=== PATIENT | male | born 2000 | race African-American/Black ===

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

== ENCOUNTER 2021-01-02 12:50 | Emergency (ER) | payer MEDICAID ==
[~2021-01-02] VITALS: Ht 185 cm; Wt 97.4 kg
[~2021-01-02 12:50] MED LIST: SULF1TAB38 PO
--- NOTE | 2021-01-02 13:37 | ED General ---
General Chief Complaint: Allergic Reaction Stated Complaint: FACIAL SWELLING Nursing Triage Note: PT COMPLAINS OF SNEEZING, SWOLLEN EYES, SEASONAL ALLERGIES X2 WEEKS. HAS NOT TAKEN ANY MEDICATIONS FOR SYMPTOMS. Source of Information: Patient, Family Exam Limitations: Other (Autism) History of Present Illness Date Seen by Provider: Jan 02, 2021 Time Seen by Provider: 13:25 Initial Comments This 20-year-old young man is brought to the emergency room by his grandmother for reasons of eye itching and swelling. He also is exhibiting sneezing. She states he tends to go through this each fall. He has had no fever. Eyes are not painful but appear itchy. They swell after he starts rubbing them. He is autistic so his grandmother gives most of the history. He has not taken any allergy medications. She also reports some minor bumps around the distribution of his facial hair. Allergies and Home Medications Allergies Coded Allergies: diphenhydramine (Verified Allergy, Unknown, 02/23/20) Patient Home Medication List Home Medication List Reviewed: Yes Fluticasone Propionate (Flonase Allergy Relief) 9.9 Ml [place].susp, 2 SPRAY NSEACH DAILY Prescribed by: DEVORA NICOLE on 01/02/21 1339 Loratadine (Loratadine) 10 Mg Tablet, 10 MG PO DAILY Prescribed by: DEVORA NICOLE on 01/02/21 1339 Sulfamethoxazole/Trimethoprim (Bactrim Ds Tablet) 1 Each Tablet, 1 EACH PO BID Prescribed by: DEMIAN LOPEZ on 02/23/201928 Review of Systems Review of Systems Constitutional: no symptoms reported EENTM: see HPI Respiratory: no symptoms reported Cardiovascular: no symptoms reported Gastrointestinal: no symptoms reported Genitourinary: no symptoms reported Musculoskeletal: no symptoms reported Skin: no symptoms reported Psychiatric/Neurological: No Symptoms Reported Hematologic/Lymphatic: No Symptoms Reported Immunological/Allergic: see HPI Past Zsqtiwe-Buzdes-Xlmmep Hx Patient Social History Tobacco Use?: No Smoking Status: Never a Smoker Substance use?: No Alcohol Use?: No Pt feels they are or have been: No Immunizations Up To Date First/Initial COVID19 Vaccinat: NA Seasonal Allergies Seasonal Allergies: Yes (Late summer and fall) Past Medical History Surgeries: No Respiratory: No Cardiac: No Neurological: Yes Developmental Disorder ("Autism") Genitourinary: No Gastrointestinal: No Musculoskeletal: No Endocrine: No HEENT: No Cancer: No Psychosocial: Yes (AUTISM) Integumentary: No Blood Disorders: No Physical Exam Vital Signs Vital Signs - First Documented 01/02/21 12:58 Temp 37.2 Pulse 110 Resp 16 B/P (MAP) 130/73 (92) Pulse Ox 97 O2 Delivery Room Air Capillary Refill : Less Than 3 Seconds Height, Weight, BMI Height: '" Weight: lbs. oz. kg; 28.00 BMI Method: General Appearance: No Apparent Distress, WD/WN HEENT: PERRL/EOMI, Pharynx Normal, Other (TMs are retracted and slightly erythematous. Bilateral conjunctiva mildly erythematous and swollen. Minor periorbital swelling around the eyelids.) Neck: Normal Inspection Respiratory: Lungs Clear, Normal Breath Sounds, No Accessory Muscle Use Cardiovascular: Regular Rate, Rhythm, No Edema, No Murmur Neurologic/Psychiatric: Alert, Normal Mood/Affect, family living educator II-XII Norm as Tested Skin: Normal Color, Warm/Dry, Other (Mild periorbital swelling. Minor bumps on the shaved surfaces of the face that are not inflamed.) Progress/Results/Core Measures Suspected Sepsis SIRS Temperature: Pulse: 110 Respiratory Rate: 16 Blood Pressure 130 /73 Mean: 92 Results/Orders Vital Signs/I&O 01/02/21 12:58 Temp 37.2 Pulse 110 Resp 16 B/P (MAP) 130/73 (92) Pulse Ox 97 O2 Delivery Room Air Capillary Refill : Less Than 3 Seconds Blood Pressure Mean: 92 Progress Note : Progress Note We discussed treatment of seasonal allergies. Patient is allergic to Benadryl but can take other antihistamines according to his mother. See discharge instructions and prescriptions. Departure Impression Primary Impression: Allergic rhinitis Qualified Codes: J30.1 - Allergic rhinitis due to pollen Additional Impressions: Allergic conjunctivitis Qualified Codes: H10.13 - Acute atopic conjunctivitis, bilateral Eustachian tube dysfunction Qualified Codes: H69.83 - Other specified disorders of eustachian tube, bilateral Disposition: 01 HOME, SELF-CARE Condition: Stable Departure-Patient Inst. Decision time for Depature: 13:35 Referrals: ALVERTO BELTRÁN MD (PCP/Family) Primary Care Physician Patient Instructions: Seasonal Allergies (DC) Add. Discharge Instructions: Use a nondrowsy allergy medication in the mornings such as Zyrtec (cetirizine), Claritin (loratadine), etc. Use the steroid nasal spray (fluticasone or Flonase) 2 sprays in each side of the nose daily. Follow-up with your primary care provider next week if these measures are not sufficient to improve the symptoms. I recommend that you continue these medications through the allergy seasons, at least until the first hard freeze. Call with questions or concerns. Return to the ER if there are worsening symptoms All discharge instructions reviewed with patient and/or family. Voiced understanding. Scripts Fluticasone Propionate (Flonase Allergy Relief) 9.9 Ml [place].susp 2 SPRAY NSEACH DAILY, #1 EACH 2 Refills 2 SPRAYS PER NOSTRIL DAILY X 2 DAYS THEN 1 SPRAY DAILY Prov: DEVORA BUCK MD 01/02/21 Loratadine (Loratadine) 10 Mg Tablet 10 MG PO DAILY, #30 TAB 2 Refills Prov: DEVORA BUCK MD 01/02/21 Copy Copies To 1: ALVERTO BELTRÁN MD, JOSHUA T MD Jan 02, 2021 13:37
[2021-01-02] MEDS ORDERED: LORA10TA7 PO (13:39)
[2021-01-02] MEDS ORDERED: FLUT9.9S NSEACH (13:39)
[2021-01-02 13:44] VITALS: BP 121/75
== END 2021-01-02 13:50 | disposition home or self-care (01) ==
LOC: EDUNIT# 12:50 → ER FS 12:53
DX: J30.1 Allergic rhinitis due to pollen (principal); H10.13 Acute atopic conjunctivitis, bilateral; H69.83 Other specified disorders of Eustachian tube, bilateral; F89 Unspecified disorder of psychological development; F84.0 Autistic disorder; Z79.51 Long term (current) use of inhaled steroids
CPT/HCPCS: 99283

== ENCOUNTER 2021-08-08 21:09 | Emergency (ER) | payer MEDICAID ==
[~2021-08-08] VITALS: Ht 195.5 cm; Wt 106.1 kg
[~2021-08-08 21:09] MED LIST changes: +FLUT9.9S NSEACH; +LORA10TA7 PO
[2021-08-08 21:34] LABS: BASOPHILS % (AUTO) 1 % (0-10); EOSINOPHILS # (AUTO) 0.3 10^3/uL (0.0-0.3); EOSINOPHILS % (AUTO) 4 % (0-10); HEMATOCRIT 47 % (40-54); HEMOGLOBIN 15.7 g/dL (13.3-17.7); LYMPHOCYTES % (AUTO) 41 % (12-44); MEAN CORPUSCULAR HEMOGLOBIN 28 pg (25-34); MEAN CORPUSCULAR HGB CONC 34 g/dL (32-36); MEAN CORPUSCULAR VOLUME 84 fL (80-99); MEAN PLATELET VOLUME 8.6 fL (9.0-12.2); MONOCYTES # (AUTO) 0.6 10^3/uL (0.0-1.0); MONOCYTES % (AUTO) 8 % (0-12); NEUTROPHILS # (AUTO) 3.3 10^3/uL (1.8-7.8); NEUTROPHILS % (AUTO) 46 % (42-75); PLATELET COUNT 289 10^3/uL (130-400); WHITE BLOOD COUNT 7.2 10^3/uL (4.3-11.0)
[2021-08-08 21:39] LABS: BILIRUBIN,URINE NEGATIVE (NEGATIVE); CLARITY,URINE CLEAR; COLOR,URINE ORANGE; GLUCOSE, URINE (UA) NEGATIVE (NEGATIVE); KETONES,URINE NEGATIVE (NEGATIVE); LEUKOCYTE ESTERASE ,URINE NEGATIVE (NEGATIVE); NITRITE,URINE NEGATIVE (NEGATIVE); PH,URINE 6.5 (5-9); PROTEIN,URINE NEGATIVE (NEGATIVE)
[2021-08-08 21:47] LABS: BACTERIA,URINE NEGATIVE /HPF; RBC,URINE RARE /HPF; WBC,URINE 0-2 /HPF
[2021-08-08 21:49] LABS: AMPHETAMINE SCREEN, URINE NEGATIVE (NEGATIVE); BARBITURATE SCREEN URINE NEGATIVE (NEGATIVE); BENZODIAZEPINES SCREEN URINE NEGATIVE (NEGATIVE); CANNABINOID SCREEN, URINE NEGATIVE (NEGATIVE); COCAINE SCREEN URINE NEGATIVE (NEGATIVE); METHADONE STAT NEGATIVE (NEGATIVE); METHAMPHETAMINE SCREEN URINE S NEGATIVE (NEGATIVE); OPIATE SCREEN URINE NEGATIVE (NEGATIVE); OXYCODONE STAT NEGATIVE (NEGATIVE); PROPOXYPHENE STAT NEGATIVE (NEGATIVE); TRICYCLIC ANTIDEPRESSANTS SCRE NEGATIVE (NEGATIVE)
[2021-08-08 21:56] LABS: ALANINE AMINOTRANSFERASE 22 U/L (0-55); ALBUMIN 4.1 GM/DL (3.2-4.5); ALKALINE PHOSPHATASE 99 U/L (40-136); BILIRUBIN,TOTAL 0.3 MG/DL (0.1-1.0); BUN/CREATININE RATIO 4; CALCIUM 9.1 MG/DL (8.5-10.1); CARBON DIOXIDE 24 MMOL/L (21-32); CHLORIDE 104 MMOL/L (98-107); GFR ESTIMATED 126; GLUCOSE 104 MG/DL (70-105); POTASSIUM 3.8 MMOL/L (3.6-5.0); SODIUM 138 MMOL/L (135-145)
[2021-08-08 22:19] LABS: ACETAMINOPHEN < 10 UG/ML (10-30); SALICYLATE < 0.3 MG/DL (5.0-20.0)
[2021-08-08] MEDS ORDERED: ZIPRASIDONE 20 MG INJ (GEODON) VIAL IM ONE (23:00)
[2021-08-08] MEDS ORDERED: WATER (STERILE) FOR INJ 10 ML BTL INJ SCH (23:00)
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
[2021-08-09 01:23] VITALS: BP 126/86
== END 2021-08-09 02:15 | disposition home or self-care (01) ==
LOC: EDUNIT# 21:09 → ER FS 21:10
DX: F91.9 Conduct disorder, unspecified (principal)
CPT/HCPCS: 36415; 80053; 80306; 81000; 85025; 99283; G0480 ×3; 80320; 80329

== ENCOUNTER 2021-08-29 09:05 | Emergency (ER) | payer MEDICAID ==
[~2021-08-29] VITALS: Ht 195 cm; Wt 111.0 kg
--- NOTE | 2021-08-29 10:40 | ED General ---
General Chief Complaint: Medical Screening Exam Stated Complaint: PSYCH EVAL Source of Information: Patient, Family, Police (DEMIAN LOPEZ MD) History of Present Illness Date Seen by Provider: August 29, 2021 Time Seen by Provider: 10:30 Initial Comments 20-year-old male presenting with police due to having an anger outburst at home. He had threatened to tear up the house and hurt people in the house because he had not gotten chips brought back to the house by family. He denies any suicidal ideation. He is calm and cooperative with both police and the emergency department staff. He has an appointment at 11 AM with [facility]. Associated Systoms: No Chest Pain, No Cough, No Diaphoresis, No Fever/Chills, No Headaches, No Loss of Appetite, No Malaise, No Nausea/Vomiting, No Rash, No Seizure, No Shortness of Air, No Syncope, No Weakness (DEMIAN LOPEZ MD) Allergies and Home Medications Allergies Coded Allergies: diphenhydramine (Verified Allergy, Unknown, 02/23/20) Patient Home Medication List Home Medication List Reviewed: Yes (DEMIAN LOPEZ MD) Fluticasone Propionate (Flonase Allergy Relief) 9.9 Ml [place].susp, 2 SPRAY NSEACH DAILY Prescribed by: DEVORA NICOLE on 01/02/211338 Loratadine (Loratadine) 10 Mg Tablet, 10 MG PO DAILY Prescribed by: DEVORA NICOLE on 01/02/21 1339 Sulfamethoxazole/Trimethoprim (Bactrim Ds Tablet) 1 Each Tablet, 1 EACH PO BID Prescribed by: DEMIAN LOPEZ on 02/23/201928 Review of Systems Review of Systems Constitutional: No chills, No fever EENTM: no symptoms reported Respiratory: no symptoms reported Cardiovascular: no symptoms reported Gastrointestinal: no symptoms reported Genitourinary: no symptoms reported Musculoskeletal: no symptoms reported Skin: no symptoms reported Psychiatric/Neurological: See HPI, Other (Behavioral problems and made threats against family members and personal property of home) Hematologic/Lymphatic: No Symptoms Reported (DEMIAN LOPEZ MD) Past Rahgotb-Zjdcug-Xtqlws Hx Immunizations Up To Date First/Initial COVID19 Vaccinat: NA (DEMIAN LOPEZ MD) Seasonal Allergies Seasonal Allergies: Yes (Late summer and fall) (DEMIAN LOPEZ MD) Past Medical History Surgeries: No Respiratory: No Cardiac: No Neurological: Yes Developmental Disorder Genitourinary: No Gastrointestinal: No Musculoskeletal: No Endocrine: No HEENT: No Cancer: No Psychosocial: Yes (AUTISM) Integumentary: No Blood Disorders: No (DEMIAN LOPEZ MD) Physical Exam Vital Signs Vital Signs - First Documented 08/29/21 12:57 Temp 36.6 Pulse 92 Resp 18 B/P (MAP) 127/79 (95) Pulse Ox 99 O2 Delivery Room Air ([facility]) Vital Signs Capillary Refill : (DEMIAN LOPEZ MD) Height, Weight, BMI Height: '" Weight: lbs. oz. kg; 27.00 BMI Method: General Appearance: No Apparent Distress, WD/WN HEENT: PERRL/EOMI, Pharynx Normal Neck: Full Range of Motion, Normal Inspection, Non Tender, Supple Respiratory: Chest Non Tender, Lungs Clear, Normal Breath Sounds, No Accessory Muscle Use, No Respiratory Distress Cardiovascular: Regular Rate, Rhythm, Normal Peripheral Pulses Gastrointestinal: Normal Bowel Sounds, No Pulsatile Mass, Non Tender, Soft Rectal: Deferred Extremity: Normal Capillary Refill, Normal Inspection, Normal Range of Motion, No Pedal Edema Neurologic/Psychiatric: Alert, Oriented x3, No Motor/Sensory Deficits, radio disc jockey II- XII Norm as Tested, Other (Flat affect) Skin: Normal Color, Warm/Dry (DEMIAN LOPEZ MD) Progress/Results/Core Measures Suspected Sepsis SIRS Temperature: Pulse: Respiratory Rate: Blood Pressure / Mean: (DEMIAN LOPEZ MD) Results/Orders Lab Results Laboratory Tests Test 08/29/21 11:21 08/30/21 09:05 Range/Units SARS-CoV-2 RNA (RT-PCR) Not Detected Not Detecte White Blood Count 6.7 4.3-11.0 10^3/uL Red Blood Count 5.24 4.30-5.52 10^6/uL Hemoglobin 14.8 13.3-17.7 g/dL Hematocrit 45 40-54 % Mean Corpuscular Volume 86 80-99 fL Mean Corpuscular Hemoglobin 28 25-34 pg Mean Corpuscular Hemoglobin Concent 33 32-36 g/dL Red Cell Distribution Width 13.2 10.0-14.5 % Platelet Count 347 130-400 10^3/uL Mean Platelet Volume 8.6 L 9.0-12.2 fL Immature Granulocyte % (Auto) 0 % Neutrophils (%) (Auto) 55 42-75 % Lymphocytes (%) (Auto) 35 12-44 % Monocytes (%) (Auto) 7 0-12 % Eosinophils (%) (Auto) 3 0-10 % Basophils (%) (Auto) 0 0-10 % Neutrophils # (Auto) 3.7 1.8-7.8 10^3/uL Lymphocytes # (Auto) 2.3 1.0-4.0 10^3/uL Monocytes # (Auto) 0.5 0.0-1.0 10^3/uL Eosinophils # (Auto) 0.2 0.0-0.3 10^3/uL Basophils # (Auto) 0.0 0.0-0.1 10^3/uL Immature Granulocyte # (Auto) 0.0 0.0-0.1 10^3/uL Neutrophils % (Manual) 49 % Lymphocytes % (Manual) 40 % Monocytes % (Manual) 8 % Eosinophils % (Manual) 3 % Blood Morphology Comment NORMAL Sodium Level 137 135-145 MMOL/L Potassium Level 4.2 3.6-5.0 MMOL/L Chloride Level 102 98-107 MMOL/L Carbon Dioxide Level 26 21-32 MMOL/L Anion Gap 9 5-14 MMOL/L Blood Urea Nitrogen 9 7-18 MG/DL Creatinine 0.93 0.60-1.30 MG/DL Estimat Glomerular Filtration Rate 121 BUN/Creatinine Ratio 10 Glucose Level 96 70-105 MG/DL Calcium Level 9.1 8.5-10.1 MG/DL Corrected Calcium 9.1 8.5-10.1 MG/DL Total Bilirubin 0.6 0.1-1.0 MG/DL Aspartate Amino Transf (AST/SGOT) 23 5-34 U/L Alanine Aminotransferase (ALT/SGPT) 26 0-55 U/L Alkaline Phosphatase 87 40-136 U/L Total Protein 7.8 6.4-8.2 GM/DL Albumin 4.0 3.2-4.5 GM/DL (ANTONI MAYES DO) Vital Signs/I&O 08/29/21 08/29/21 12:57 22:43 Temp 36.6 Pulse 92 99 Resp 18 18 B/P (MAP) 127/79 (95) 98/64 Pulse Ox 99 99 O2 Delivery Room Air Room Air (ANTONI MAYES DO) Vital Signs/I&O Capillary Refill : (DEMIAN LOPEZ MD) Progress Note #1: Progress Note Will check with [facility] about how they would like to complete their screening on the patient. He has an appointment at 11 AM but they had recommended please bring him here to the emergency department. Progress Note #2: Progress Note After speaking with [facility] the stated they would call back and do a Zoom call with the patient and then the family. Progress Note #3: Progress Note After completing evaluation of the patient and speaking with the family [facility] felt that patient had made threats to harm family members and they we will look for behavioral health placement. They did request to have a COVID swab sent. Patient was advised of the plan and situation and agreed to go voluntarily for admission. Progress Note #4: Time: 07:00 Progress Note 30 Aug 2021 at [address] Mayes at shift change pending disposition of the patient. He has remained calm, cooperative and non-threatening here in the ED. yesterday evening and overnight [facility] and [facility] staff had called to notify us that so far [facility] at , [facility] in [place], [place], and [facility] in [facility] had all declined patient. Due to more than 2 declinations mental health staff reported they had submitted his information to [facility] for consideration but did not expect to hear anything until morning. They plan to contact [facility] in [place] again in the morning to see if anything has changed for their status that they could accept the patient. (DEMIAN LOPEZ MD) Transfer of Care Transfer of Care Time: 07:00 Care transferred to: Dr. Mayes (DEMIAN LOPEZ MD) Departure Communication (Admissions) Patient accepted by Dr. Shetty to [facility] (ANTONI MAYES DO) Impression Primary Impression: Homicidal ideation Additional Impression: Thoughts of harming others Disposition: XFER SHT-TRM HOSP Condition: Stable Transfer Transfer Reason: Exceeds level of care Time Spoke to Accepting Phy: 15:00 Transfer Progress Notes Patient accepted per Dr. Shetty Method of Transfer: EMS (ANTONI MAYES DO) Departure-Patient Inst. Referrals: JOSH CANELA APRN (PCP) Primary Care Physician [facility] (Family) Primary Care Physician Patient Instructions: NO INSTRUCTIONS GIVEN DEMIAN LOPEZ MD August 29, 2021 10:40 ANTONI MAYES DO August 30, 2021 15:36
[2021-08-30 09:28] LABS: BASOPHILS % (AUTO) 0 % (0-10); EOSINOPHILS # (AUTO) 0.2 10^3/uL (0.0-0.3); EOSINOPHILS % (AUTO) 3 % (0-10); HEMATOCRIT 45 % (40-54); HEMOGLOBIN 14.8 g/dL (13.3-17.7); LYMPHOCYTES # (AUTO) 2.3 10^3/uL (1.0-4.0); LYMPHOCYTES % (AUTO) 35 % (12-44); MEAN CORPUSCULAR HEMOGLOBIN 28 pg (25-34); MEAN CORPUSCULAR HGB CONC 33 g/dL (32-36); MEAN CORPUSCULAR VOLUME 86 fL (80-99); MEAN PLATELET VOLUME 8.6 fL (9.0-12.2); MONOCYTES # (AUTO) 0.5 10^3/uL (0.0-1.0); MONOCYTES % (AUTO) 7 % (0-12); NEUTROPHILS # (AUTO) 3.7 10^3/uL (1.8-7.8); NEUTROPHILS % (AUTO) 55 % (42-75); PLATELET COUNT 347 10^3/uL (130-400); WHITE BLOOD COUNT 6.7 10^3/uL (4.3-11.0)
[2021-08-30 09:48] LABS: POTASSIUM 4.2 MMOL/L (3.6-5.0)
[2021-08-30 09:49] LABS: BILIRUBIN,TOTAL 0.6 MG/DL (0.1-1.0); CALCIUM 9.1 MG/DL (8.5-10.1); CREATININE SERUM 0.93 MG/DL (0.60-1.30)
[2021-08-30 09:55] LABS: TOTAL PROTEIN 7.8 GM/DL (6.4-8.2)
[2021-08-30 10:07] LABS: EOSINOPHILS % (MANUAL) 3 %; LYMPHOCYTES % (MANUAL) 40 %; MONOCYTES % (MANUAL) 8 %; NEUTROPHILS % (MANUAL) 49 %
[2021-08-30 10:08] LABS: RBC MORPH NORMAL
[2021-08-30 15:57] VITALS: BP 145/82
== END 2021-08-30 16:19 | disposition short-term general hospital (02) ==
LOC: EDUNIT# 09:05 → ER FS 09:06
DX: R45.850 Homicidal ideations (principal); Z20.822 Contact with and (suspected) exposure to COVID-19
CPT/HCPCS: 36415; 80053; 85007; 85027; 87636; 99284

== ENCOUNTER 2022-02-22 10:57 | Emergency (ER) | payer MEDICAID ==
[~2022-02-22] VITALS: Ht 182.9 cm; Wt 115.3 kg
--- NOTE | 2022-02-22 11:14 | ED Psychosocial ---
General Chief Complaint: Psych/Social Disorder Stated Complaint: PSYCH EVAL Source: patient, family Exam Limitations: other (history of autism) History of Present Illness Date Seen by Provider: Feb 22, 2022 Time Seen by Provider: 11:09 Initial Comments 21-year-old male here with history of autism presents to the ER. His grandma or mom dropped him off. They called and said that he was tearing at the house and threatening to kill people. Patient states he was upset because he could not get his iPad open he went to play. He did have a password. States he does not want to hurt anybody. States he did tear up his room. Denies wanting to hurt anybody or himself. Declines to have blood or urine drawn. Allergies and Home Medications Allergies Coded Allergies: diphenhydramine (Verified Allergy, Unknown, 02/23/20) Patient Home Medication List Home Medication List Reviewed: Yes Fluticasone Propionate (Flonase Allergy Relief) 9.9 Ml [place].susp, 2 SPRAY NSEACH DAILY Prescribed by: DEVORA NICOLE on 01/02/211338 Loratadine (Loratadine) 10 Mg Tablet, 10 MG PO DAILY Prescribed by: DEVORA NICOLE on 01/02/21 133 Sulfamethoxazole/Trimethoprim (Bactrim Ds Tablet) 1 Each Tablet, 1 EACH PO BID Prescribed by: DEMIAN LOPEZ on 02/23/201928 Review of Systems Constitutional: see HPI Past Aphddfu-Paktkl-Yvktrt Hx Patient Social History Tobacco Use?: No Immunizations Up To Date First/Initial COVID19 Vaccinat: NA Seasonal Allergies Seasonal Allergies: Yes (Late summer and fall) Past Medical History Surgeries: No Respiratory: No Cardiac: No Neurological: Yes Developmental Disorder Genitourinary: No Gastrointestinal: No Musculoskeletal: No Endocrine: No HEENT: No Cancer: No Psychosocial: Yes (AUTISM) Integumentary: No Blood Disorders: No Physical Exam Vital Signs - First Documented 02/22/22 11:05 Temp 36.5 Pulse 104 Resp 18 B/P (MAP) 120/71 (87) Pulse Ox 97 O2 Delivery Room Air Capillary Refill : Height, Weight, BMI Height: '" Weight: lbs. oz. kg; 29.00 BMI Method: General Appearance: WD/WN, no apparent distress HEENT: PERRL/EOMI, pharynx normal Neck: normal inspection Respiratory: chest non-tender, normal breath sounds Cardiovascular: regular rate, rhythm, no murmur Gastrointestinal: normal bowel sounds Appearance/Memory: appropriate appearance Behavior/Eye Contact: cooperative Skin: normal color, warm/dry Progress/Results/Core Measures Results/Orders Vital Signs/I&O 02/22/22 11:05 Temp 36.5 Pulse 104 Resp 18 B/P (MAP) 120/71 (87) Pulse Ox 97 O2 Delivery Room Air Progress Progress Note #1: Time: 11:31 Progress Note Cleared medically for behavioral health screenings. We will [place] [facility] Progress Note #2: Time: 15:12 Progress Note Patient and on lung screening with [facility]. Will await for report and further recommendations Progress Note #3: Time: 16:04 Progress Note Care plan made with behavioral health. Family will be coming to pick him up. He is got a safety plan and will be discharged Departure Impression Primary Impression: Anxiety Additional Impression: Autism Disposition: 01 HOME, SELF-CARE Condition: Stable Departure-Patient Inst. Decision time for Depature: 16:05 Referrals: JOSH CANELA APRN (PCP) Primary Care Physician [facility] (Family) Primary Care Physician Patient Instructions: Anxiety, Adult ED, Autism Spectrum Disorder Add. Discharge Instructions: Follow with safety care plan. follow-up with behavioral health All discharge instructions reviewed with patient and/or family. Voiced understanding. KAMAR CORTEZ MD Feb 22, 2022 11:14
[2022-02-22 16:03] VITALS: BP 134/69
== END 2022-02-22 16:05 | disposition home or self-care (01) ==
LOC: EDUNIT# 10:57 → ER FS 10:58
DX: F84.0 Autistic disorder (principal); F41.9 Anxiety disorder, unspecified; Z28.310 Unvaccinated for COVID-19

== ENCOUNTER 2022-03-27 07:05 | Emergency (ER) | payer MEDICAID ==
[2022-03-27 07:24] VITALS: BP 123/84
--- NOTE | 2022-03-27 07:24 | ED General ---
General Chief Complaint: General Problems/Pain Stated Complaint: PSYCH EVAL Source of Information: Patient Exam Limitations: No Limitations History of Present Illness Date Seen by Provider: Mar 27, 2022 Time Seen by Provider: 07:15 Initial Comments 21-year-old male with history of autism presents to the emergency department today dropped off by his grandmother. She reported to nursing staff that mother with whom he lives did not cook fried chicken last night. He was upset so when he woke up this morning he dumped water on her head. On arrival the patient states he does not really know why he is here. He does tell me that his brother spoke to chocolate milk on the floor and he was forced to clean it up which upset him. He denies yelling, violence in any way. He denies any suicidal or homicidal thoughts or intentions. He denies any medical concerns at this time Allergies and Home Medications Allergies Coded Allergies: diphenhydramine (Verified Allergy, Unknown, 02/23/20) Patient Home Medication List Home Medication List Reviewed: Yes Fluticasone Propionate (Flonase Allergy Relief) 9.9 Ml [place].susp, 2 SPRAY NSEACH DAILY Prescribed by: DEVORA NICOLE on 01/02/21 1339 Loratadine (Loratadine) 10 Mg Tablet, 10 MG PO DAILY Prescribed by: DEVORA NICOLE on 01/02/21 1339 Sulfamethoxazole/Trimethoprim (Bactrim Ds Tablet) 1 Each Tablet, 1 EACH PO BID Prescribed by: DEMIAN LOPEZ on 02/23/201928 Review of Systems Review of Systems Constitutional: no symptoms reported EENTM: no symptoms reported Respiratory: no symptoms reported Cardiovascular: no symptoms reported Gastrointestinal: no symptoms reported Genitourinary: no symptoms reported Musculoskeletal: no symptoms reported Skin: no symptoms reported Psychiatric/Neurological: No Symptoms Reported Hematologic/Lymphatic: No Symptoms Reported Immunological/Allergic: no symptoms reported Past Wxokhlz-Ffelvp-Xmxoow Hx Patient Social History Tobacco Use?: No Use of E-Cig and/or Vaping dev: No Substance use?: No Alcohol Use?: No Immunizations Up To Date First/Initial COVID19 Vaccinat: NA Second COVID19 Vaccination Ez: NA Third COVID19 Vaccination Date: NA Seasonal Allergies Seasonal Allergies: Yes (Late summer and fall) Past Medical History Surgery/Hospitalization HX: Autism Surgeries: No Respiratory: No Cardiac: No Neurological: Yes Developmental Disorder Genitourinary: No Gastrointestinal: No Musculoskeletal: No Endocrine: No HEENT: No Cancer: No Psychosocial: Yes (AUTISM) Integumentary: No Blood Disorders: No Family Medical History Reviewed Nursing Family Hx No Pertinent Family Hx Physical Exam Vital Signs Vital Signs - First Documented 03/27/22 07:24 Temp 36.7 Pulse 101 Resp 16 B/P (MAP) 123/84 (97) Pulse Ox 97 O2 Delivery Room Air Capillary Refill : Height, Weight, BMI Height: '" Weight: lbs. oz. kg; 34.00 BMI Method: General Appearance: No Apparent Distress, WD/WN HEENT: PERRL/EOMI, Normal ENT Inspection, Pharynx Normal Neck: Normal Inspection, Non Tender, Supple Respiratory: Chest Non Tender, Lungs Clear, Normal Breath Sounds, No Accessory Muscle Use, No Respiratory Distress Cardiovascular: Regular Rate, Rhythm, No Edema, No Gallop, No JVD, No Murmur, Normal Peripheral Pulses Gastrointestinal: Normal Bowel Sounds, No Organomegaly, No Pulsatile Mass, Non Tender, Soft Extremity: Normal Capillary Refill, Normal Inspection, Normal Range of Motion, Non Tender, No Calf Tenderness Neurologic/Psychiatric: Alert, Oriented x3, No Motor/Sensory Deficits Skin: Normal Color, Warm/Dry Lymphatic: No Adenopathy Progress/Results/Core Measures Suspected Sepsis SIRS Temperature: Pulse: Respiratory Rate: Blood Pressure / Mean: Results/Orders Vital Signs/I&O 03/27/22 07:24 Temp 36.7 Pulse 101 Resp 16 B/P (MAP) 123/84 (97) Pulse Ox 97 O2 Delivery Room Air Capillary Refill : Departure Communication (Admissions) The patient is hemodynamically stable. He is calm, cooperative here. I spoke with his mother who states that she asked him not to take the trash out this morning as it was not full enough that he decided to go ahead and take the trash out anyway. When she confronted him about it when he came back in he became upset and punched a refrigerator. He also poured out some water onto her leg. He did not make any suicidal or threatening statements today. I spoke with her at length on the phone. I advised that I do not think that there is an acute psychiatric emergency at this time and acknowledged her frustration with mental health services available. She states ultimately she would like possible long term or long-term care placement however she has been unable to work with local mental health to get any resources and is frustrated that they are "just throwing different medications at him." I have looked up some things online and printed out some resources for a [employer] with some services here in [place]. I also gave her the website that I found online for listings of all long term facilities in each [facility] in [place]. He does not meet criteria for any mental health screening. He has no medical concerns at this time. He will be discharged home into the care of his grandmother Impression Primary Impression: Encounter for medical screening examination Disposition: HOME, SELF-CARE Condition: Stable Departure-Patient Inst. Referrals: JOSH CANELA APRN (PCP) Primary Care Physician [facility] (Family) Primary Care Physician Add. Discharge Instructions: Return to the emergency department for any severe concerns. Follow-up with his primary doctor for any nonemergent needs. Follow-up with his psychiatrist for any further psychiatric needs. Return to the emergency department for any suicidal thoughts. Refer to the provided paperwork for a recommendation for possible long term placement. I have also provided this website which lists all group homes available in each [facility]. [email or web address] All discharge instructions reviewed with patient and/or family. Voiced understanding. NEFTALI BOUDREAUX DO Mar 27, 2022 07:24
== END 2022-03-27 07:57 | disposition home or self-care (01) ==
LOC: EDUNIT# 07:05 → ER FS 07:08
DX: Z13.9 Encounter for screening, unspecified (principal)
CPT/HCPCS: 99281

== ENCOUNTER 2023-03-14 19:19 | Emergency (ER) | payer MEDICAID ==
[~2023-03-14] VITALS: Ht 195.5 cm; Wt 121.8 kg
[2023-03-14 19:22] VITALS: BP 143/79
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
[2023-03-14 19:43] LABS: BASOPHILS % (AUTO) 0 % (0-10); EOSINOPHILS # (AUTO) 0.2 10^3/uL (0.0-0.3); EOSINOPHILS % (AUTO) 3 % (0-10); HEMATOCRIT 46 % (40-54); HEMOGLOBIN 14.4 g/dL (13.3-17.7); LYMPHOCYTES # (AUTO) 2.5 10^3/uL (1.0-4.0); LYMPHOCYTES % (AUTO) 38 % (12-44); MEAN CORPUSCULAR HEMOGLOBIN 28 pg (25-34); MEAN CORPUSCULAR HGB CONC 32 g/dL (32-36); MEAN CORPUSCULAR VOLUME 88 fL (80-99); MEAN PLATELET VOLUME 8.9 fL (9.0-12.2); MONOCYTES # (AUTO) 0.5 10^3/uL (0.0-1.0); MONOCYTES % (AUTO) 8 % (0-12); NEUTROPHILS # (AUTO) 3.3 10^3/uL (1.8-7.8); NEUTROPHILS % (AUTO) 51 % (42-75); PLATELET COUNT 348 10^3/uL (130-400); WHITE BLOOD COUNT 6.5 10^3/uL (4.3-11.0)
[2023-03-14] MEDS ORDERED: ZIPRASIDONE INJECTION 20 MG VIAL IM PRN (19:45)
[2023-03-14] MEDS ORDERED: WATER (STERILE) FOR INJ 10 ML BTL INJ SCH (19:45)
[2023-03-14] MEDS ORDERED: OLANZapine 5 MG ODT TABLET PO ONE (19:45)
[2023-03-14 20:00] LABS: BILIRUBIN,TOTAL 0.2 MG/DL (0.1-1.0); CALCIUM 9.1 MG/DL (8.5-10.1); CARBON DIOXIDE 26 MMOL/L (21-32); CHLORIDE 105 MMOL/L (98-107); GLUCOSE 94 MG/DL (70-105); POTASSIUM 4.1 MMOL/L (3.6-5.0); SODIUM 137 MMOL/L (135-145); TOTAL PROTEIN 7.9 GM/DL (6.4-8.2)
[2023-03-14 20:04] LABS: ACETAMINOPHEN < 10 UG/ML (10-30); ALANINE AMINOTRANSFERASE 26 U/L (0-55); ALBUMIN 3.9 GM/DL (3.2-4.5); ALKALINE PHOSPHATASE 99 U/L (40-136); BUN/CREATININE RATIO 10; CREATININE SERUM 1.03 MG/DL (0.60-1.30); GFR ESTIMATED 106; SALICYLATE < 0.3 MG/DL (5.0-20.0)
[2023-03-14 20:28] LABS: BILIRUBIN,URINE NEGATIVE (NEGATIVE); CLARITY,URINE CLEAR; COLOR,URINE YELLOW; GLUCOSE, URINE (UA) NEGATIVE (NEGATIVE); KETONES,URINE NEGATIVE (NEGATIVE); LEUKOCYTE ESTERASE ,URINE NEGATIVE (NEGATIVE); NITRITE,URINE NEGATIVE (NEGATIVE); PROTEIN,URINE NEGATIVE (NEGATIVE)
[2023-03-14 20:31] LABS: BACTERIA,URINE NEGATIVE /HPF
[2023-03-14 20:39] LABS: AMPHETAMINE SCREEN, URINE NEGATIVE (NEGATIVE); BARBITURATE SCREEN URINE NEGATIVE (NEGATIVE); CANNABINOID SCREEN, URINE NEGATIVE (NEGATIVE); COCAINE SCREEN URINE NEGATIVE (NEGATIVE); METHADONE STAT NEGATIVE (NEGATIVE); OPIATE SCREEN URINE NEGATIVE (NEGATIVE); OXYCODONE STAT NEGATIVE (NEGATIVE); TRICYCLIC ANTIDEPRESSANTS SCRE NEGATIVE (NEGATIVE)
== END 2023-03-14 21:24 | disposition home or self-care (01) ==
LOC: EDUNIT# 19:19 → ER FS 19:21
DX: F84.0 Autistic disorder (principal); Z59.00 Homelessness unspecified; X50.1XXA Overexertion from prolonged static or awkward postures, initial encounter
CPT/HCPCS: 36415; 80053; 80306; 81000; 85025; 87636; 93005; 99283; G0480 ×3; 80320; 80329